=== PATIENT | female | born 1995 | race Two or more races ===

== ENCOUNTER 2018-07-16 14:20 | Outpatient (CLI) | payer OTHER | END 2018-07-16 15:34 | disposition home or self-care (01) | LOC: SONOGRAMA 14:20 | DX: N94.89 Other specified conditions associated with female genital organs and menstrual cycle (principal) ==

== ENCOUNTER 2018-09-08 12:14 | Inpatient (IN) | payer OTHER ==
[~2018-09-08] VITALS: Ht 154.9 cm; Wt 70.8 kg
[2018-09-08] MEDS ORDERED: PRENATAL TABLE1 EAC1 PO (13:27)
== END 2018-09-13 13:11 | disposition home or self-care (01) | DRG 832 ==
LOC: OB/GYN 12:14 → LDR 12:14 → OB/GYN 09-10 10:38
PROVIDERS: ADMIT Specialist
PROC: 4A1HXFZ Monitoring of Products of Conception, Cardiac Rhythm, External Approach (ICD-10-PCS; principal; 2018-09-08)
PROC: BY4FZZZ Ultrasonography of Third Trimester, Single Fetus (ICD-10-PCS; 2018-09-08)
PROC: BU4CZZZ Ultrasonography of Uterus and Ovaries (ICD-10-PCS; 2018-09-08)
DX: O60.03 Preterm labor without delivery, third trimester (principal); O26.873 Cervical shortening, third trimester; Z34.03 Encounter for supervision of normal first pregnancy, third trimester

== ENCOUNTER 2018-10-04 02:21 | Inpatient (IN) | payer OTHER ==
[~2018-10-04] VITALS: Ht 154.9 cm; Wt 72.6 kg
[~2018-10-04 02:21] MED LIST: PRENATAL TABLE1 EAC1 PO
== END 2018-10-06 14:36 | disposition home or self-care (01) | DRG 807 ==
LOC: LDR 02:21 → OB/GYN 02:21
PROVIDERS: ADMIT Specialist
PROC: 10E0XZZ Delivery of Products of Conception, External Approach (ICD-10-PCS; principal; 2018-10-04)
PROC: 4A1HXCZ Monitoring of Products of Conception, Cardiac Rate, External Approach (ICD-10-PCS; 2018-10-04)
PROC: 0HQ9XZZ Repair Perineum Skin, External Approach (ICD-10-PCS; 2018-10-04)
PROC: 0UQMXZZ Repair Vulva, External Approach (ICD-10-PCS; 2018-10-04)
PROC: 4A033R1 Measurement of Arterial Saturation, Peripheral, Percutaneous Approach (ICD-10-PCS; 2018-10-04)
DX: O70.0 First degree perineal laceration during delivery (principal); Z37.0 Single live birth; Z3A.37 37 weeks gestation of pregnancy; Z22.330 Carrier of Group B streptococcus

== ENCOUNTER 2020-05-15 13:44 | Emergency (ER) | payer OTHER ==
[~2020-05-15] VITALS: Ht 152.4 cm; Wt 64.0 kg
== END 2020-05-15 18:34 | disposition home or self-care (01) ==
LOC: ER 13:44
DX: O21.1 Hyperemesis gravidarum with metabolic disturbance (principal); Z34.01 Encounter for supervision of normal first pregnancy, first trimester

== ENCOUNTER 2020-09-26 01:38 | Outpatient (CLI) | payer OTHER | END 2020-09-26 11:54 | disposition home or self-care (01) | LOC: OBS/DEL 01:38 | PROVIDERS: ATTEND Specialist | DX: O26.843 Uterine size-date discrepancy, third trimester (principal); O42.913 Preterm premature rupture of membranes, unspecified as to length of time between rupture and onset of labor, third trimester; Z3A.30 30 weeks gestation of pregnancy ==

== ENCOUNTER 2020-10-17 20:59 | Inpatient (IN) | payer OTHER ==
[~2020-10-17] VITALS: Ht 154.9 cm; Wt 73.0 kg
== END 2020-10-19 13:39 | disposition home or self-care (01) | DRG 806 ==
LOC: LDR 20:59 → OB/GYN 20:59
PROVIDERS: ADMIT Specialist; ATTEND Specialist
PROC: 10E0XZZ Delivery of Products of Conception, External Approach (ICD-10-PCS; principal; 2020-10-17)
PROC: 10907ZC Drainage of Amniotic Fluid, Therapeutic from Products of Conception, Via Natural or Artificial Opening (ICD-10-PCS; 2020-10-17)
PROC: 4A1HXFZ Monitoring of Products of Conception, Cardiac Rhythm, External Approach (ICD-10-PCS; 2020-10-17)
DX: O60.14X0 Preterm labor third trimester with preterm delivery third trimester, not applicable or unspecified (principal); O26.873 Cervical shortening, third trimester; Z37.0 Single live birth; Z3A.33 33 weeks gestation of pregnancy; Z20.822 Contact with and (suspected) exposure to COVID-19; H91.90 Unspecified hearing loss, unspecified ear

== ENCOUNTER 2020-10-31 08:00 | Outpatient (CLI) | payer OTHER | END 2020-10-31 08:30 | disposition home or self-care (01) | LOC: PPH VACUNA 08:00 | DX: Z23 Encounter for immunization (principal) ==

== ENCOUNTER 2020-11-21 08:00 | Outpatient (CLI) | payer OTHER | END 2020-11-21 08:30 | disposition home or self-care (01) | LOC: PPH VACUNA 08:00 | DX: Z23 Encounter for immunization (principal) ==